=== PATIENT | female | born 1980 | race Caucasian/White ===

== ENCOUNTER 2017-08-31 18:06 | Emergency (ER) | payer OTHER ==
[~2017-08-31] VITALS: Ht 170.2 cm; Wt 65.8 kg
[2017-08-31 18:58] VITALS: BP 124/82
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
[2017-08-31 19:02] VITALS: BP 124/82
== END 2017-08-31 19:10 | disposition home or self-care (01) ==
LOC: EMR 19:00
DX: S50.01XA Contusion of right elbow, initial encounter (principal); M79.601 Pain in right arm; E05.90 Thyrotoxicosis, unspecified without thyrotoxic crisis or storm; Z88.8 Allergy status to other drugs, medicaments and biological substances; V43.62XA Car passenger injured in collision with other type car in traffic accident, initial encounter; Y92.410 Unspecified street and highway as the place of occurrence of the external cause
CPT/HCPCS: 99283